=== PATIENT | female | born 1965 ===

== ENCOUNTER 2024-11-26 06:10 | Day surgery (SDC) | payer OTHER ==
[2024-11-12 10:16] VITALS: BP 124/84
[~2024-11-26] VITALS: Ht 157.5 cm; Wt 68.9 kg
[~2024-11-26 06:10] MED LIST: LIPITOR20 MG PO; MULTI-VITAMIN1 EACH PO
[2024-11-26] MEDS ORDERED: METRONIDAZOLE/SODIUM CHLORIDE 500 MG/100 ML PIGGYBACK IV ONE (13:03)
[2024-11-26] MEDS ORDERED: CEFTRIAXONE SODIUM 2,000 MG VIAL ONE (13:07)
[2024-11-26] MEDS ORDERED: DIBUCAINE 30 GM TUBE ONE (13:15)
[2024-11-26] MEDS ORDERED: POVIDONE-IODINE 118 ML BOTT TOP ONE (13:15)
[2024-11-26] MEDS ORDERED: BUPIVACAINE HCL/MPF 0.5% 30ML VIAL ONE (13:15)
[2024-11-26] MEDS ORDERED: LIDOCAINE HCL 1%/EPINEPHRINE 20ML VIAL IJ ONE (13:15)
[2024-11-26] MEDS ORDERED: HEMOSTATIC MATRIX WITH THROMBIN KIT TOP ONE (13:15)
[2024-11-26] MEDS ORDERED: OXYCODONE HCL5 MG PO (14:35)
[2024-11-26] MEDS ORDERED: TAMSULOSIN HCL 0.4 MG CAP PO ONE ×2 (14:45→17:39)
== END 2024-11-26 18:25 | disposition home or self-care (01) ==
LOC: CIR.AMB 06:10
PROVIDERS: ATTEND Surgery
DX: K64.5 Perianal venous thrombosis (principal); K64.8 Other hemorrhoids; K62.5 Hemorrhage of anus and rectum; K62.89 Other specified diseases of anus and rectum; E78.5 Hyperlipidemia, unspecified; M19.90 Unspecified osteoarthritis, unspecified site; J32.9 Chronic sinusitis, unspecified; E78.00 Pure hypercholesterolemia, unspecified